=== PATIENT | male | born 1990 | race Hispanic/Latino ===

== ENCOUNTER 2022-06-14 18:55 | Emergency (ER) | payer OTHER ==
[~2022-06-14] VITALS: Ht 175.3 cm; Wt 93.2 kg
[2022-06-14 18:56] VITALS: BP 154/92
[2022-06-14] MEDS ORDERED: KETOROLAC 30 MG/ML 1ML VIAL IM ONE (22:30)
[2022-06-14] MEDS ORDERED: ACETAMINOPHEN 325 MG TAB PO ONE (22:30)
[2022-06-14] MEDS ORDERED: NAPR-837 PO (22:32)
[2022-06-14] MEDS ORDERED: CYCL-707 PO (22:32)
== END 2022-06-14 22:51 | disposition home or self-care (01) ==
LOC: M ED 18:55
DX: S39.012A Strain of muscle, fascia and tendon of lower back, initial encounter (principal); X50.0XXA Overexertion from strenuous movement or load, initial encounter
CPT/HCPCS: 96372; 99282; J1885

== ENCOUNTER 2022-12-24 08:49 | Emergency (ER) | payer OTHER ==
[~2022-12-24] VITALS: Ht 175.3 cm; Wt 100.7 kg
[~2022-12-24 08:49] MED LIST: CYCL-707 PO; NAPR-837 PO
[2022-12-24] MEDS ORDERED: APAP325T4 PO (08:59)
[2022-12-24] MEDS ORDERED: LIDO5DIS41 TOP (08:59)
[2022-12-24] MEDS ORDERED: MEDR4PAK PO (12:22)
[2022-12-24] MEDS ORDERED: METH-1165 PO (12:22)
[2022-12-24 12:40] VITALS: BP 134/88
== END 2022-12-24 12:45 | disposition home or self-care (01) ==
LOC: M ED 08:49
DX: M54.50 Low back pain, unspecified (principal)

== ENCOUNTER 2023-03-25 14:43 | Emergency (ER) | payer OTHER ==
[~2023-03-25] VITALS: Ht 175.3 cm; Wt 104.2 kg
[~2023-03-25 14:43] MED LIST changes: +APAP325T4 PO; +LIDO5DIS41 TOP; +MEDR4PAK PO; +METH-1165 PO
[2023-03-25] MEDS ORDERED: TIZA10TA (14:52)
[2023-03-25] MEDS ORDERED: GABA-282 (14:52)
[2023-03-25] MEDS ORDERED: SERT50TA29 (14:52)
[2023-03-25] MEDS ORDERED: OMEP40CA5 (14:52)
[2023-03-25] MEDS ORDERED: SERT25TA21 (14:52)
[2023-03-25] MEDS ORDERED: IBUP-1022 PO (15:16)
[2023-03-25] MEDS ORDERED: diazePAM 5MG TABLET PO ONE (16:35)
[2023-03-25] MEDS ORDERED: LIDOCAINE 5% (LIDODERM) PATCH TD ONE (16:35)
[2023-03-25] MEDS ORDERED: ACETAMINOPHEN 500 MG TAB PO ONE (16:35)
[2023-03-25 18:14] VITALS: BP 126/83; TEMP 97.2; O2SAT 100
== END 2023-03-25 18:15 | disposition home or self-care (01) ==
LOC: M ED 14:43
DX: M51.36 Other intervertebral disc degeneration, lumbar region (principal)

== ENCOUNTER 2023-05-07 11:37 | Emergency (ER) | payer OTHER ==
[~2023-05-07] VITALS: Ht 175.3 cm; Wt 102.2 kg
[~2023-05-07 11:37] MED LIST changes: +GABA-282; +IBUP-1022 PO; +OMEP40CA5; +SERT25TA21; +SERT50TA29; +TIZA10TA
[2023-05-07] MEDS ORDERED: IBUP1TAB5 PO (12:23)
[2023-05-07] MEDS ORDERED: GABA-282 PO (12:23)
[2023-05-07] MEDS ORDERED: ACET1TAB55 PO (12:23)
[2023-05-07 13:29] VITALS: BP 122/84; TEMP 98.1; O2SAT 99
== END 2023-05-07 13:30 | disposition home or self-care (01) ==
LOC: M ED 11:37
DX: S86.112A Strain of other muscle(s) and tendon(s) of posterior muscle group at lower leg level, left leg, initial encounter (principal)

== ENCOUNTER 2023-05-20 16:45 | Emergency (ER) | payer OTHER ==
[~2023-05-20] VITALS: Ht 175.3 cm; Wt 104.9 kg
[~2023-05-20 16:45] MED LIST changes: +ACET1TAB55 PO; +GABA-282 PO; +IBUP1TAB5 PO
[2023-05-20 16:47] VITALS: BP 143/97; TEMP 97.6; O2SAT 97
== END 2023-05-20 19:00 | disposition left against medical advice (07) ==
LOC: M ED 16:45
DX: Z53.21 Procedure and treatment not carried out due to patient leaving prior to being seen by health care provider (principal)